=== PATIENT | female | born 1935 | race Caucasian/White ===

== ENCOUNTER 2017-02-05 10:48 | Emergency (ER) | payer MEDICARE, OTHER ==
[~2017-02-05 10:48] MED LIST: ACTOS45 MG PO; ALEVE220 MG; ALTACE5 MG PO; ASPIR-LOW81 MG PO; B-COMPLEX PLUS1 TAB PO; BACTRIM DS TAB1 EAC2 PO; CALCIUM + D T1 UDTAB PO; CELEXA20 MG PO; CINNAMON500 MG PO; CIPRO250 MG PO; DETROL LA4 MG PO; EQL FISH OIL 1,1 CA1 PO; EQL FISH OIL 11 EAC2 PO; FOSAMAX70 MG; FUROSEMIDE40 MG PO; GLUCOPHAGE500 MG; GLUMETZA1000 MG/BO PO; GLUMETZA500 MG/BOT PO; HYDROCHLOROTHIA25 MG; HYDROCODON-ACE1 EA16 PO; KEFLEX500 MG PO; METFORMIN HCL500 M2 PO; MILK OF MAGNESIA PO; MULTIVITAMIN1 TAB PO; NORCO 5-325 TA1 EACH PO; NORCO 5/325 TAB1 TAB PO; NORVASC5 MG PO; POTASSIUM CHLO10 MEQ PO; QUININE SULFAT260 MG; SPIRONOLACTONE25 M1 PO; STARLIX120 M1 PO; TYLENOL325 M2 PO; TYLENOL500 MG PO; VITAMIN B COMPL PO; ZOFRAN4 MG PO
[2017-02-05] MEDS ORDERED: HM VITAMIN B-10.4 MG PO (11:07)
[2017-02-05] MEDS ORDERED: CINNAMON500 M1 PO (11:08)
[2017-02-05] MEDS ORDERED: ERTUGLIFLOZIN PO (11:09)
[2017-02-05 12:08] LABS: BASO % 0.3 % (0-2); EOS % 4.2 % (0-7); EOSINOPHIL ABSOLUTE COUNT 0.3 tho/cmm (0.0-0.7); HCT-HEMATOCRIT 39.2 % (34.0-49.0); HGB-HEMOGLOBIN 13.3 gm/dl (12.0-15.5); IMMATURE GRANULOCYTES ABSOLUTE 0.01 tho/cmm (0-0.03); IMMATURE GRANULOCYTES PERCENT 0.1 % (0-0.3); LYMPH % 14.6 % (20-45); LYMPH ABSOLUTE COUNT 1.1 tho/cmm (0.8-4.5); MCH (MEAN CORPUSCULAR HGB) 31.4 pg (28.0-32.0); MCHC MEAN CORPUSCULAR HGB CONC 33.9 % (32.0-36.0); MCV (MEAN CELL VOLUME) 92.7 fl (82.0-96.0); MONO % 5.1 % (0-12); MONOCYTE ABSOLUTE COUNT 0.4 tho/cmm (0.0-1.2); NEUTROPHIL ABSOLUTE COUNT 5.6 tho/cmm (1.6-8.0); NEUTROPHIL-AUTOMATED 5.6 tho/cmm (1.6-8.0); NEUTROPHILS % 75.7 % (40-80); PLATELET COUNT 185 tho/cmm (150-450); RED BLOOD COUNT 4.23 mil/cmm (4.00-5.20); RED CELL DISTRIBUTION WIDTH 12.8 % (12.4-16.4); WHITE BLOOD COUNT 7.5 tho/cmm (4.0-10.0)
[2017-02-05 12:21] LABS: ALB/GLOB RATIO 0.9 (0.8-2.0); ALBUMIN 3.6 g/dl (3.5-5.0); ALKALINE PHOSPHATASE 111 U/L (33-138); ALT/SGPT 42 U/L (12-78); ANION GAP 13 mmol/L (0-20); AST/SGOT 23 U/L (10-40); BILIRUBIN,TOTAL 0.4 mg/dl (0-1.5); BLOOD UREA NITROGEN 20 mg/dl (6-24); C-REACTIVE PROTEIN 0.8 mg/dl (0-0.9); CALCIUM 9.7 mg/dl (8.5-10.5); CARBON DIOXIDE-VENOUS 31 mmol/L (22-32); CHLORIDE 99 mmol/l (96-110); CREATININE 0.99 mg/dl (0.50-1.10); GLUCOSE 256 mg/dL (70-110); POTASSIUM 4.6 mmol/L (3.7-5.1); SODIUM 138 mmol/L (135-145); eGFR VALUE FOR BLACK 62 mL/Min
[2017-02-05] MEDS ORDERED: LEVAQUIN750 M1 PO (12:55)
== END 2017-02-05 13:05 ==
LOC: EDMED 10:48
PROVIDERS: Nurse Practitioner Family
DX: L03.116 Cellulitis of left lower limb (principal); E11.9 Type 2 diabetes mellitus without complications; Z88.0 Allergy status to penicillin

== ENCOUNTER 2017-03-09 13:25 | Emergency (ER) | payer MEDICARE, OTHER ==
[~2017-03-09 13:25] MED LIST changes: +CINNAMON500 M1 PO; +ERTUGLIFLOZIN PO; +HM VITAMIN B-10.4 MG PO; +LEVAQUIN750 M1 PO
== END 2017-03-09 18:26 ==
LOC: EDMED 13:25
DX: S40.011A Contusion of right shoulder, initial encounter (principal); S50.312A Abrasion of left elbow, initial encounter; M70.62 Trochanteric bursitis, left hip; I10 Essential (primary) hypertension; Z96.643 Presence of artificial hip joint, bilateral; Z96.652 Presence of left artificial knee joint; Z79.899 Other long term (current) drug therapy; Z79.82 Long term (current) use of aspirin; W10.9XXA Fall (on) (from) unspecified stairs and steps, initial encounter